=== PATIENT | female | born 1995 | race American Indian/Alaskan Native ===

== ENCOUNTER → 2020-01-19 15:04 | Outpatient (BNVA) | payer MEDICAID, SELFPAY | PROVIDERS: Visit Provider Advanced Practice Midwife | DX: Z76.89 Persons encountering health services in other specified circumstances (principal) ==

== ENCOUNTER 2020-01-22 12:36 | Outpatient (REF) | payer OTHER, SELFPAY ==
[2020-01-22 13:29] LABS: MANUAL DIFF FLAG NO
[2020-01-22 13:37] LABS: Basophils Percent Auto 0.1 % (0-2); Eosinophils Percent Auto 0.1 % (0-4); Hematocrit 33.1 % (37-47); Hemoglobin 11.6 g/dl (12.0-16.0); Imm Gran Abs Auto 0.06 X10*3/uL (0.00-0.03); Imm Gran Pct Auto 0.6 % (0.0-0.4); Lymphocytes Absolute Auto 1.4 X10*3/uL (1.2-4.9); Lymphocytes Percent Auto 14.9 % (20-40); Mean Corpuscular Hemoglobin 31.3 pg (27.0-33.0); Mean Corpuscular Volume 89.2 fL (80-98); Mean Platelet Volume 11.4 fL (9.4-12.3); Monocytes Absolute Auto 0.5 X10*3/uL (0.1-1.2); Neutrophils Absolute Auto 7.3 X10*3/uL (2.0-8.3); Neutrophils Percent Auto 79.3 % (45-73); Platelet Count 171 X10*3/uL (160-400); Red Blood Count 3.71 X10*6/uL (4.20-5.50); Red Cell Distribution Width 13.4 % (11.0-16.0); White Blood Count 9.3 X10*3/uL (4.8-10.8)
[2020-01-22 13:48] LABS: Alanine Aminotransferase 10 U/L (0-31); Albumin Level 3.7 g/dL (3.5-5.0); Alkaline Phosphatase 55 U/L (39-117); Anion Gap 13 (12-20); Aspartate Amino Transferase 14 U/L (5-31); Bilirubin Total 0.6 mg/dL (0.0-1.0); Blood Urea Nitrogen 8 mg/dL (9-16); Calcium 8.3 mg/dL (8.4-10.2); Carbon Dioxide 23 mmol/L (22-29); Chloride 106 mmol/L (96-108); Estimated Glomerular Filt Rate > 60; Glucose Random 94 mg/dL (60-115); Potassium 3.9 mmol/l (3.3-5.1); Sodium 138 mmol/L (135-145); Total Protein 6.1 g/dL (6.5-8.0)
== END 2020-01-22 12:37 | disposition home or self-care (01) ==
LOC: HO.LAB 12:36
PROVIDERS: Visit Provider Advanced Practice Midwife
DX: Z34.90 Encounter for supervision of normal pregnancy, unspecified, unspecified trimester (principal)
CPT/HCPCS: 36415; 80053; 85025

== ENCOUNTER → 2020-01-29 10:30 | Outpatient (BNVA) | payer OTHER, SELFPAY | PROVIDERS: Visit Provider Advanced Practice Midwife | DX: Z76.89 Persons encountering health services in other specified circumstances (principal) ==

== ENCOUNTER 2020-02-06 08:16 | Outpatient (REF) | payer OTHER, SELFPAY ==
--- NOTE | 2020-02-06 08:41 | US_ITS ---
EXAMINATION: US OBSTETRICAL CLINICAL INFORMATION: 24-year-old at 25.1 weeks of gestation Late transfer of OB care History of gestational hypertension Suspected anomaly COMPARISON: None TECHNIQUE: Real-time transabdominal ultrasound was performed using C1-5 megahertz transducer. FINDINGS: A single, active, fetus is seen in vertex presentation. The placenta is posterior without previa, and the amniotic fluid volume is wnl. MEASUREMENTS: 1. Biparietal Diameter: 6.4 cm; 26.1 wks 2. Occipital Frontal Diameter: 8.4 cm 3. Head Circumference: 23.8 cm; 26.0 wks 4. Abdominal Circumference: 21.9 cm; 26.3 wks 5. Femur Length: 4.7 cm; 25.6 wks 6. Humerus Length: 4.3 cm; 25.6 wks 7. Tibia Length: 4.0 cm; 25.4 wks 8. Ulna Length: 3.98 cm; 26.1 wks 9. Lateral ventricle: 0.8 cm 10. Cerebellum: 2.75 cm; 26.2 wks 11. Cisterna Magna: 0.55 cm 12. Nuchal Fold: N/A mm 13. Heart Rate: 140 beats per minute Rt ovary: normal Lt ovary: normal Cervical length 3.5 cm on T/A. GESTATIONAL AGE: 1. Established GA: 25.1 wks 2. GA from [facility]: 26.1 wks ESTIMATED DATE OF DELIVERY: 1. Established SIENNA: 05/20/2020 2. SIENNA from [facility]: 05/13/2020 ANATOMY: The visualized anatomy includes but not limited to: 1. Cranium: Normal 2. Intracranial anatomy: cavum septum pellucidi, lateral ventricles, choroid plexus, cerebellum, posterior fossa, third and fourth ventricles. 3. face: orbits, lip/palate, profile, nasal bone 4. Heart: four-chamber view of the heart, ventricular septum, foramen ovale, pulmonary vein, left and right outflow tracts, three-vessel view, 3 vessel trachea view, aortic and ductal arches, situs.. 5. Diaphragm: Normal 6. Abdominal wall: Normal 7. Cord Insertion: Normal 8. Spine: Cervical, thoracic, lumbar, sacral. 9. Stomach: Normal size and shape 10. Right Kidney: Normal 11. Left Kidney: Normal 12. 3 vessel cord: Normal 13. Upper extremity: Open hands, fifth digit. 14. Lower extremity: Tibia, fibula, bilateral feet. 15. Bladder: Normal 16. Genitalia: Male, patient aware US/US OB /maternal detail IMPRESSION: 1. Single, living, intrauterine with appropriate biometry. 2. Normal survey DISCUSSION: I reviewed today's ultrasound findings. We discussed the limitations of ultrasound in diagnosing aneuploidy and other congenital abnormalities. I reviewed the differences between screening test and diagnostic test. Amniocentesis was discussed and declined. According to patient, she had the gestational hypertension at the approximately 42 weeks of gestation. She is currently not taking any medications for hypertension. However she is on baby aspirin QD prophylaxis. The recurrence rate for GHTN at term is approximately 10%. She was informed that the baseline incidence of congenital abnormalities is approximately 3-5%. Not all these conditions are diagnosable in utero. RECOMMENDATIONS: 1. No additional ultrasound has been scheduled at this time. Thank you for allowing me to participate in her care. Visiting time 20 minutes. Majority of this visit was spent reviewing and discussing her care.
== END 2020-02-06 08:17 | disposition home or self-care (01) ==
LOC: HO.US 08:16
PROVIDERS: Visit Provider Advanced Practice Midwife
DX: O09.32 Supervision of pregnancy with insufficient antenatal care, second trimester (principal); Z36.3 Encounter for antenatal screening for malformations; Z86.39 Personal history of other endocrine, nutritional and metabolic disease; Z3A.25 25 weeks gestation of pregnancy
CPT/HCPCS: 76811

== ENCOUNTER 2020-02-26 09:49 | Outpatient (REF) | payer OTHER, SELFPAY | END 2020-02-26 09:50 | disposition home or self-care (01) | LOC: HO.LAB 09:49 | PROVIDERS: Referring Provider Advanced Practice Midwife; Visit Provider Advanced Practice Midwife | DX: Z13.89 Encounter for screening for other disorder (principal) ==

== ENCOUNTER 2020-02-27 12:17 | Outpatient (REF) | payer OTHER, SELFPAY ==
[2020-02-27 14:21] LABS: Hemoglobin 12.1 g/dl (12.0-16.0); Mean Corpuscular HGB Conc 32.7 g/dl (31.0-35.0); Mean Corpuscular Hemoglobin 29.5 pg (27.0-33.0); Mean Corpuscular Volume 90.2 fL (80-98); Mean Platelet Volume 11.4 fL (9.4-12.3); Platelet Count 167 X10*3/uL (160-400); Red Cell Distribution Width 13.2 % (11.0-16.0); White Blood Count 8.5 X10*3/uL (4.8-10.8)
[2020-02-27 14:40] LABS: Glucose 1 Hour PP 50gm Dose 108 mg/dL (60-140)
[2020-02-27 14:49] LABS: Alanine Aminotransferase 12 U/L (0-31); Aspartate Amino Transferase 15 U/L (5-31); Blood Urea Nitrogen 7 mg/dL (9-16)
[2020-02-27 15:07] LABS: Syphilis Screen Nonreactive (Nonreactive)
[2020-02-27 15:49] LABS: Amphetamine Screen Urine Not Detected (Not Detect); Barbiturates, Urine Not Detected (Not Detect); Benzodiazepines Screen Urine Not Detected (Not Detect); Cannabinoid Screen Urine Not Detected (Not Detect); Cocaine Screen Urine Not Detected (Not Detect); Creatinine Urine 61.14 mg/dL; Opiate Screen Urine Not Detected (Not Detect); Phencyclidine Screen Urine Not Detected (Not Detect); Total Protein Urine Random < 7 mg/dL (<12)
[2020-02-28 09:22] LABS: Rubella IgG Antibody 1.58 index
[2020-03-01 08:26] LABS: HBS Num1 34.78 mIU/mL (0-7.99); HBsAGNum1 0.15 S/CO (0.00-0.99); Hepatitis B Core Antibody Nonreactive (Nonreactive); Hepatitis B Surface Antigen Negative (Negative); ~HepC Num1 0.09 S/CO (0.00-0.79); ~Hepatitis B Surface Antibody REACTIVE (Nonreactive); ~Hepatitis C Antibody Nonreactive (Nonreactive)
[2020-03-01 08:43] LABS: HIV AB/AG Nonreactive (Nonreactive)
== END 2020-02-27 12:18 | disposition home or self-care (01) ==
LOC: HO.LAB 12:17
PROVIDERS: Advanced Practice Midwife; Visit Provider Advanced Practice Midwife
DX: O26.899 Other specified pregnancy related conditions, unspecified trimester (principal); R51.9 Headache, unspecified; Z34.90 Encounter for supervision of normal pregnancy, unspecified, unspecified trimester; Z20.2 Contact with and (suspected) exposure to infections with a predominantly sexual mode of transmission
CPT/HCPCS: 36415; 80307; 84156; 84450; 84460; 84520; 85027; 86704; 86706; 86762; 86780; 86787; 86803; 86850; 86900; 86901; 87086; 87340; 87389

== ENCOUNTER 2020-03-16 18:43 | Emergency (ER) | payer OTHER, SELFPAY ==
[2020-03-16 19:04] VITALS: BP 110/64; PULSE 104; RESP 18; TEMP 37.2; O2SAT 98; BMI 25.0
--- NOTE | 2020-03-16 19:58 | ED_ITS ---
HPI - URI/Sore Throat General Chief Complaint: Upper Respiratory Symptoms Stated Complaint: flu like Time Seen by Provider: 03/16/20 19:58 Source: patient Mode of arrival: ambulatory Limitations: no limitations History of Present Illness HPI Narrative: Runny nose/congestion for past 2 days daughter who is 2 years old with similar symptoms. No fever. She is 24 weeks gestation no - related complaints. No abdominal pain, nausea vomiting diarrhea no vaginal bleeding. No fever. MD elicited complaint: rhinorrhea and nasal congestion Severity: mild Associated symptoms: denies other symptoms Treatments prior to arrival: none Related Data Home Medications Medication Instructions Recorded Confirmed vits-iron 27 mg-folic ac pkg PO 01/19/20 01/19/20 1 mg-om3 312 mg-dha 250 mg oral pack Previous Rx's Medication Instructions Recorded aspirin 81 mg chewable tablet 162 mg PO DAILY #30 tab 03/09/20 vitamin-ferrous fumarate 1 tab PO DAILY #30 tab 03/09/20 28 mg iron-folic acid 800 mcg tablet Allergies Allergy/AdvReac Type Severity Reaction Status Date / Time No Known Allergies Allergy Verified 03/16/20 19:04 Review of Systems Review of Systems: Constitutional: No Weight loss, No Fever, No Chills, No Night Sweats, No Fatigue, No Malaise ENT/Mouth: No Hearing loss, No Ear Pain, + Nasal Congestion, No Sinus Pain, No Hoarseness, No sore throat, + Rhinorrhea, No Swallowing Difficulty Eyes: No Eye Pain, No Swelling, No Redness, No Foreign Body, No Discharge, No Vision Changes Cardiovascular: No Chest Pain, No SOB, No Dyspnea on Exertion, No Orthopnea, No Edema, No Palpitations Respiratory: No Cough, No Sputum, No Wheezing, No Smoke Exposure, No Dyspnea Gastrointestinal: No Nausea, No Vomiting, No Diarrhea, No Constipation, No abdominal Pain, No Hematochezia, No Melena Genitourinary: no irregular bleeding, No Dysuria, No Urinary Frequency, No Hematuria, No Urinary Incontinence, No Urgency, No Flank Pain, No Urinary Flow Changes, No Hesitancy Musculoskeletal: No joint pain, No Myalgias, No Joint Swelling Skin: No Skin Lesions, No rash Neuro: No Weakness, No Numbness, No Paresthesias, No Loss of Consciousness, No Dizziness, No Headache Psych: No Social Issues Heme/Lymph: No Bruising, No Bleeding,No Lymphadenopathy Endocrine: No Polyuria, No Polydipsia, No Temperature Intolerance Yes all other systems are reviewed and are negative [facility] Past Medical History Medical History Headache in Family History Family History Mother No problems noted. Father No problems noted. Sister Hx of cervical cancer Maternal Grandfather Hx of diabetes mellitus History of hypertension Maternal Grandmother Hx of coronary artery disease Social History Social History (Updated 03/09/20 @ 10:57 by Alix Cardoso) Alcohol intake: never Smoking Status: Never smoker Advance Directives: No Advance Directives Information Provided: No Gender identity: female Physical Exam Vital Signs: Vital Signs: Last Vital Signs Temp 99.0 F 03/16/20 19:04 Pulse 104 H 03/16/20 19:04 Resp 18 03/16/20 19:04 BP 110/64 03/16/20 19:04 Pulse Ox 98 03/16/20 19:04 Body Mass Index 25.0 Reviewed Const: General: cooperative and healthy appearing; No acute distress or intoxicated appearing Nutritional Appearance: average body habitus Orientation/consciousness: patient oriented x3 HENMT: Head: Yes normal to inspection Ears: hearing grossly normal bilaterally General nose exam: No nasal discharge present Eyes: General: appearance normal, both eyes and all related structures Visual Duke: normal visual duke by confrontation Neck: Neck: Yes normal visual inspection and No tender Thyroid: Thyroid normal Chest: Chest palpation & inspection: normal inspection of the chest Resp: Effort & Inspection: normal respiratory effort Cardio: Jugular venous distension: no JVD GI: Inspection: Yes normal to inspection Percussion: Yes normal to percussion Auscultation: normal bowel sounds : General: Yes no CVA tenderness Back/Spine/Pelvis: Back: no CVA tenderness Skin: General skin exam: no rashes or lesions noted Neuro: General: patient oriented x3 Extrem: General: Yes normal to inspection Discharge Plan Discharge Clinical Impression: Upper respiratory infection Qualifiers: URI type: acute nasopharyngitis (common cold) Qualified Code(s): J00 - Acute nasopharyngitis [common cold] Patient Disposition: Home, Self-Care Instructions: Upper Respiratory Infection (ED) Additional Instructions: We have tested for COVID-19, influenza and RSV this may take up to 45 minutes to an hour to result we will call you with results Follow-up care instructions reviewed Return if any concerns or worsening symptoms Push fluids Thank you Prescriptions: No Action flu vacc [id number] 6mos up(PF) 60 mcg (15 mcg x 4)/0.5 mL syringe 0.5 ml IM ONCE Qty: 0.5 RF: 0 aspirin [[facility] Aspirin] 81 mg tablet,chewable 162 mg PO DAILY Qty: 30 RF: 6 vit-iron fum-folic ac 28 mg iron- 800 mcg tablet 1 tab PO DAILY Qty: 30 RF: 11 Plus DHA 27 mg iron-1 mg -312 mg-250 mg combo pack PO RF: 0 Referrals: Physician,Unknown [Primary Care Provider] - 5 days (Primary care via Phone as needed)
[2020-03-16 20:25] LABS: COVID-19 Test Negative (Negative); IDNOW Serial# 9DD0AD1C
== END 2020-03-16 20:34 | disposition home or self-care (01) ==
PROVIDERS: Nurse Practitioner Primary Care; Emergency Provider Emergency Medicine Emergency Medical Services
DX: O99.512 Diseases of the respiratory system complicating pregnancy, second trimester (principal); Z20.828 Contact with and (suspected) exposure to other viral communicable diseases; Z3A.24 24 weeks gestation of pregnancy
CPT/HCPCS: 87635; 99283

== ENCOUNTER 2020-03-26 11:12 | Outpatient (REF) | payer OTHER, SELFPAY ==
[2020-04-23 22:15] LABS: CT PCR NOT DETECTED (Not Detect.)
[2020-04-23 22:16] LABS: NG PCR NOT DETECTED (Not Detect.)
== END 2020-03-26 11:13 | disposition home or self-care (01) ==
LOC: HO.LAB 11:12
PROVIDERS: Visit Provider Advanced Practice Midwife
DX: A74.9 Chlamydial infection, unspecified (principal); O09.299 Supervision of pregnancy with other poor reproductive or obstetric history, unspecified trimester; O98.819 Other maternal infectious and parasitic diseases complicating pregnancy, unspecified trimester
CPT/HCPCS: 87491; 87591

== ENCOUNTER 2020-04-12 11:26 | Outpatient (REF) | payer MEDICAID, SELFPAY ==
[2020-04-14 05:41] LABS: C. trachomatis RNA TMA NOT DETECTED (NOT DETECTED); N. gonorrhoeae RNA TMA NOT DETECTED (NOT DETECTED)
== END 2020-04-12 11:27 | disposition home or self-care (01) ==
LOC: HO.LAB 11:26
PROVIDERS: Visit Provider Advanced Practice Midwife
DX: O98.819 Other maternal infectious and parasitic diseases complicating pregnancy, unspecified trimester (principal); O09.299 Supervision of pregnancy with other poor reproductive or obstetric history, unspecified trimester; A74.9 Chlamydial infection, unspecified
CPT/HCPCS: 81003; 87491; 87591; 99212

== ENCOUNTER 2020-04-26 10:49 | Outpatient (REF) | payer MEDICAID, SELFPAY | END 2020-04-26 10:50 | disposition home or self-care (01) | LOC: CF 10:49 | PROVIDERS: Visit Provider Advanced Practice Midwife | DX: O09.293 Supervision of pregnancy with other poor reproductive or obstetric history, third trimester (principal); Z3A.36 36 weeks gestation of pregnancy | CPT/HCPCS: 81003; 87081; 99212 ==

== ENCOUNTER 2020-05-03 14:50 | Outpatient (REF) | payer MEDICAID, SELFPAY ==
[2020-05-05 02:57] LABS: C. trachomatis RNA TMA NOT DETECTED (NOT DETECTED); N. gonorrhoeae RNA TMA NOT DETECTED (NOT DETECTED)
== END 2020-05-03 14:51 | disposition home or self-care (01) ==
LOC: HO.LNP 14:50
PROVIDERS: Visit Provider Advanced Practice Midwife
DX: Z34.93 Encounter for supervision of normal pregnancy, unspecified, third trimester (principal)
CPT/HCPCS: 87491; 87591; 99212

== ENCOUNTER → 2020-05-11 10:46 | Outpatient (BNVA) | payer MEDICAID, SELFPAY | PROVIDERS: Visit Provider Advanced Practice Midwife | DX: Z34.93 Encounter for supervision of normal pregnancy, unspecified, third trimester (principal) | CPT/HCPCS: 81003; 99212 ==

== ENCOUNTER → 2020-05-18 14:11 | Outpatient (BNVA) | payer MEDICAID, SELFPAY | PROVIDERS: Visit Provider Obstetrics & Gynecology | DX: O09.299 Supervision of pregnancy with other poor reproductive or obstetric history, unspecified trimester (principal) | CPT/HCPCS: 81003; 99212 ==

== ENCOUNTER → 2020-05-28 10:19 | Outpatient (BNVA) | payer MEDICAID, SELFPAY | PROVIDERS: Visit Provider Advanced Practice Midwife | DX: Z76.89 Persons encountering health services in other specified circumstances (principal) | CPT/HCPCS: 99212 ==

== ENCOUNTER → 2020-06-07 12:49 | Outpatient (BNVA) | payer MEDICAID, SELFPAY | PROVIDERS: Visit Provider Advanced Practice Midwife | DX: Z39.2 Encounter for routine postpartum follow-up (principal) | CPT/HCPCS: 99212 ==

== ENCOUNTER → 2020-07-26 13:46 | Outpatient (BNVA) | payer MEDICAID, SELFPAY | PROVIDERS: Visit Provider Obstetrics & Gynecology | DX: Z39.2 Encounter for routine postpartum follow-up (principal); Z30.09 Encounter for other general counseling and advice on contraception | CPT/HCPCS: 99212 ==